=== PATIENT | female | born 1955 | race Caucasian/White ===

== ENCOUNTER 2017-10-28 01:49 | Inpatient (IN) | payer SELFPAY ==
[~2017-10-28] VITALS: Ht 157.5 cm; Wt 96.7 kg
[2017-10-28] VITALS (8 sets, daily range): BP systolic 113–151; BP diastolic 52–77; PULSE 85–95; RESP 16–18; TEMP 97.7–98.5; O2SAT 94–98
--- NOTE | 2017-10-28 02:08 | PD ---
HPI Chief Complaint: Fall Time Seen by Provider: 01:52 Travel History International Travel<30 days: No Contact w/Intl Traveler<30days: No Traveled to known affect area: No History of Present Illness HPI The patient is a 62-year-old female who presents to the emergency department for right leg and knee pain after falling. The patient states she fell in her kitchen earlier tonight landing on her right knee. She heard a " pop "in the right knee. The pain is located over the inferior aspect of the knee and radiates up to the right hip. She is unable to straighten the leg or bear weight on the affected leg secondary to pain. The patient is currently visiting from [place], [place]. She denies striking her head during the fall. She denies any headache, neck pain, chest pain, shortness of breath, abdominal pain, nausea, or vomiting. Symptoms are moderate. There are no current alleviating or exacerbating factors. She denies any associated numbness or tingling of the right lower extremity. PFSH Past Medical History Narrative Medical Depression, essential tremors Asthma: Yes Diminished Hearing: No Past Surgical History Narrative Surgical section Social History Alcohol Use: Yes (occasional) Tobacco Use: Yes Substance Use: No Allergies-Medications (Allergen,Severity, Reaction): Coded Allergies: codeine (Verified Allergy, Severe, 10/28/17) Uncoded Allergies: pcn (Allergy, Severe, 10/28/17) Reported Meds & Prescriptions Reported Meds & Active Scripts Active Reported Primidone 50 Mg Tab Unknown Dose PO BID Lexapro (Escitalopram Oxalate) 5 Mg Tab Unknown Dose PO DAILY Review of Systems Except as stated in HPI: all other systems reviewed are Neg HENT: No: Headaches, Neck Pain Cardiovascular: No: Chest Pain or Discomfort Respiratory: No: Shortness of Breath Gastrointestinal: No: Nausea, Vomiting, Abdominal Pain Genitourinary: No: Dysuria Musculoskeletal: Positive: Limited ROM, Pain Neurologic: No: Paresthesia, Sensory Disturbance Physical Exam Narrative GENERAL: Awake, alert, pleasant 62-year-old female who appears her stated age and is in no acute respiratory distress. SKIN: Focused skin assessment warm/dry. HEAD: Atraumatic. Normocephalic. EYES: Pupils equal and round. No scleral icterus. No injection or drainage. ENT: No nasal bleeding or discharge. Mucous membranes pink and moist. NECK: Trachea midline. No JVD. CARDIOVASCULAR: Regular rate and rhythm. No murmur appreciated. RESPIRATORY: No accessory muscle use. Clear to auscultation. Breath sounds equal bilaterally. GASTROINTESTINAL: Abdomen soft, non-tender, nondistended. No rebound tenderness. MUSCULOSKELETAL: The right lower extremity is slightly shorter than the left lower extremity. Patient is tender palpation of the right lateral aspect of the hip and proximal femur as well as inferior aspect of the knee. The patella appears midline. Positive right dorsalis pedal pulse. She is able to wiggle all 5 toes of the right foot. She is unable to flex the right hip and knee secondary to pain. NEUROLOGICAL: Awake and alert. No obvious cranial nerve deficits. Motor grossly within normal limits. Normal speech. Sensation is intact to the medial , radial, and lateral aspect of the right lower extremity. PSYCHIATRIC: Appropriate mood and affect; insight and judgment normal. Data Data Last Documented VS Vital Signs Date Time Temp Pulse Resp B/P (MAP) Pulse Ox O2 Delivery O2 Flow Rate FiO2 10/28/17 02:07 98 Room Air 10/28/17 01:55 98.5 85 16 130/72 (91) Orders Orders Femur (Ap & Lat/2vws) (10/28/17 02:02) Pelvis, Ap Only (Routine) (10/28/17 02:02) Iv Access Insert/Monitor (10/28/17 02:02) Oximetry (10/28/17 02:02) Ecg Monitoring (10/28/17 02:02) Morphine Inj (Morphine Inj) (10/28/17 02:15) Sodium Chloride 0.9% Flush (Ns Flush) (10/28/17 02:15) Knee, Ltd (1 Or 2vws) (10/28/17 ) Ondansetron Odt (Zofran Odt) (10/28/17 02:15) Electrocardiogram (10/28/17 02:48) Complete Blood Count With Diff (10/28/17 02:48) Comprehensive Metabolic Panel (10/28/17 02:48) Prothrombin Time / Inr (Pt) (10/28/17 02:48) Act Partial Throm Time (Ptt) (10/28/17 02:48) Type And Screen (10/28/17 02:48) Chest, Single Ap (10/28/17 02:48) Ice/Cold Pack (10/28/17 02:48) Sodium Chloride 0.9% Flush (Ns Flush) (10/28/17 03:00) Ct Knee W/O Contrast (10/28/17 ) Morphine Inj (Morphine Inj) (10/28/17 03:00) Canvas Knee Splint (Cks) (10/28/17 ) Admit Order (Ed Use Only) (10/28/17 04:48) Labs Laboratory Tests Test 10/28/17 03:00 White Blood Count 8.8 TH/MM3 Red Blood Count 3.94 MIL/MM3 Hemoglobin 13.4 GM/DL Hematocrit 38.6 % Mean Corpuscular Volume 97.9 FL Mean Corpuscular Hemoglobin 34.1 PG Mean Corpuscular Hemoglobin Concent 34.8 % Red Cell Distribution Width 12.6 % Platelet Count 172 TH/MM3 Mean Platelet Volume 10.4 FL Neutrophils (%) (Auto) 58.1 % Lymphocytes (%) (Auto) 29.1 % Monocytes (%) (Auto) 11.4 % Eosinophils (%) (Auto) 0.9 % Basophils (%) (Auto) 0.5 % Neutrophils # (Auto) 5.1 TH/MM3 Lymphocytes # (Auto) 2.6 TH/MM3 Monocytes # (Auto) 1.0 TH/MM3 Eosinophils # (Auto) 0.1 TH/MM3 Basophils # (Auto) 0.0 TH/MM3 CBC Comment DIFF FINAL Differential Comment Prothrombin Time 11.0 SEC Prothromb Time International Ratio 1.1 RATIO Activated Partial Thromboplast Time 27.0 SEC Blood Urea Nitrogen 5 MG/DL Creatinine 0.46 MG/DL Random Glucose 104 MG/DL Total Protein 7.2 GM/DL Albumin 3.2 GM/DL Calcium Level 8.7 MG/DL Alkaline Phosphatase 95 U/L Aspartate Amino Transf (AST/SGOT) 35 U/L Alanine Aminotransferase (ALT/SGPT) 38 U/L Total Bilirubin 0.5 MG/DL Sodium Level 135 MEQ/L Potassium Level 3.7 MEQ/L Chloride Level 100 MEQ/L Carbon Dioxide Level 20.8 MEQ/L Anion Gap 14 MEQ/L Estimat Glomerular Filtration Rate 138 ML/MIN MDM Medical Decision Making Medical Screen Exam Complete: Yes Emergency Medical Condition: Yes Medical Record Reviewed: Yes Interpretation(s) EKG reveals normal sinus rhythm with a rate 84. No ischemic changes or ectopy noted. Last Impressions Chest X-Ray 10/28/17 0248 Signed Impressions: CONCLUSION: No acute intrathoracic disease. Pelvis X-Ray 10/28/17 020 Signed Impressions: CONCLUSION: No acute fracture or joint dislocation. Femur X-Ray 10/28/17 020 Signed Impressions: CONCLUSION: 1. No acute fracture of the femur. 2. There is a fracture involving the lateral tibial plateau. Lower Extremity CT 10/28/17 0000 Signed Impressions: CONCLUSION: 1. Intra-articular comminuted depressed fracture involving the lateral tibial plateau. 2. Joint effusion. Knee X-Ray 10/28/17 0000 Signed Impressions: CONCLUSION: Intra-articular fracture involving the lateral tibial plateau. Laboratory Tests Test 10/28/17 03:00 White Blood Count 8.8 TH/MM3 Red Blood Count 3.94 MIL/MM3 Hemoglobin 13.4 GM/DL Hematocrit 38.6 % Mean Corpuscular Volume 97.9 FL Mean Corpuscular Hemoglobin 34.1 PG Mean Corpuscular Hemoglobin Concent 34.8 % Red Cell Distribution Width 12.6 % Platelet Count 172 TH/MM3 Mean Platelet Volume 10.4 FL Neutrophils (%) (Auto) 58.1 % Lymphocytes (%) (Auto) 29.1 % Monocytes (%) (Auto) 11.4 % Eosinophils (%) (Auto) 0.9 % Basophils (%) (Auto) 0.5 % Neutrophils # (Auto) 5.1 TH/MM3 Lymphocytes # (Auto) 2.6 TH/MM3 Monocytes # (Auto) 1.0 TH/MM3 Eosinophils # (Auto) 0.1 TH/MM3 Basophils # (Auto) 0.0 TH/MM3 CBC Comment DIFF FINAL Differential Comment Prothrombin Time 11.0 SEC Prothromb Time International Ratio 1.1 RATIO Activated Partial Thromboplast Time 27.0 SEC Blood Urea Nitrogen 5 MG/DL Creatinine 0.46 MG/DL Random Glucose 104 MG/DL Total Protein 7.2 GM/DL Albumin 3.2 GM/DL Calcium Level 8.7 MG/DL Alkaline Phosphatase 95 U/L Aspartate Amino Transf (AST/SGOT) 35 U/L Alanine Aminotransferase (ALT/SGPT) 38 U/L Total Bilirubin 0.5 MG/DL Sodium Level 135 MEQ/L Potassium Level 3.7 MEQ/L Chloride Level 100 MEQ/L Carbon Dioxide Level 20.8 MEQ/L Anion Gap 14 MEQ/L Estimat Glomerular Filtration Rate 138 ML/MIN Differential Diagnosis Differential diagnosis includes hip fracture, hip dislocation, femur fracture, tibial plateau fracture, knee dislocation, mechanical fall. Narrative Course IV was established and the patient was placed on cardiac telemetry monitoring and continuous pulse oximetry monitoring. The patient was administered morphine 4 mg intravenously and Zofran 4 mg ODT. X-ray of the pelvis, right femur, and right knee were obtained. X-rays reveal the patient has a tibial plateau fracture that appears to extend into the joint. Therefore, the patient was kept n.p.o. A knee immobilizer was placed and a CT of the knee without contrast was obtained. Labs were sent and an EKG was ordered and interpreted. The patient will be admitted to the medical service with consultation orthopedics for evaluation of the right tibial plateau fracture. I discussed the findings with the patient and family at bedside. Physician Communication Physician Communication The on-call medical service was paged for admission. I discussed the patient with Dr. Zavala who agrees with admission. Diagnosis Primary Impression: Right medial tibial plateau fracture Qualified Codes: S82.131A - Displaced fracture of medial condyle of right tibia, initial encounter for closed fracture Condition: Stable You De Jesus MD Oct 28, 2017 02:08
[2017-10-28] MEDS ORDERED: MORPHINE SULFATE 4 MG/ML INJ IV PUSH ONE ×3 (02:15→08:15)
[2017-10-28] MEDS ORDERED: ONDANSETRON ODT 4 MG TAB PO ONE (02:15)
[2017-10-28] MEDS ORDERED: SODIUM CHLORIDE 0.9% FLUSH 10 ML FLUSH IVF PRN ×2 (02:15→03:00)
--- NOTE | 2017-10-28 02:41 | RADRPT ---
EXAM DATE: 10/28/2017 2:33 AM EDT AGE/SEX: 62 years / Female INDICATIONS: Pain in right leg from fall. CLINICAL DATA: This is the patient's initial encounter. Patient reports that signs and symptoms have been present for 1 day and indicates a pain score of 10/10. MEDICAL/SURGICAL HISTORY: None. None. COMPARISON: No prior [facility] exams available for comparison. FINDINGS: Examination of the pelvis demonstrates no evidence of fracture or dislocation. Bony mineralization i s normal. There is no widening of the sacroiliac joints. No foreign body is identified. There is go od alignment of the SI joints and pubic symphysis. CONCLUSION: No acute fracture or joint dislocation. Electronically signed by: Luciano Brewer MD 10/28/2017 2:39 AM EDT
--- NOTE | 2017-10-28 02:42 | RADRPT ---
EXAM DATE: 10/28/2017 2:31 AM EDT AGE/SEX: 62 years / Female INDICATIONS: Fall in kitchen pain in right knee. CLINICAL DATA: This is the patient's initial encounter. Patient reports that signs and symptoms have been present for 1 day and indicates a pain score of 10/10. MEDICAL/SURGICAL HISTORY: None. None. COMPARISON: No prior [facility] exams available for comparison. FINDINGS: There is an intra-articular fracture involving the lateral tibial plateau. There is some mild depress ion of the fracture. There is a joint effusion. No joint dislocation. The patella is grossly intact. The distal femur is grossly intact. CONCLUSION: Intra-articular fracture involving the lateral tibial plateau. Electronically signed by: Luciano Brewer MD 10/28/2017 2:41 AM EDT
--- NOTE | 2017-10-28 02:42 | RADRPT ---
EXAM DATE: 10/28/2017 2:32 AM EDT AGE/SEX: 62 years / Female INDICATIONS: Fall on right side in kitchen pain in right leg. CLINICAL DATA: This is the patient's initial encounter. Patient reports that signs and symptoms have been present for 1 day and indicates a pain score of 10/10. MEDICAL/SURGICAL HISTORY: None. None. COMPARISON: [facility], KNEE RIGHT LTD (1 OR 2 VWS), 10/28/2017. . FINDINGS: Bony structures are intact and in normal alignment. Osseous density is normal. Soft tissues are unre markable. No radiopaque foreign bodies seen. There does appear to be a fracture involving the late ral tibial plateau. CONCLUSION: 1. No acute fracture of the femur. 2. There is a fracture involving the lateral tibial plateau. Electronically signed by: Luciano Brewer MD 10/28/2017 2:40 AM EDT
--- NOTE | 2017-10-28 03:06 | RADRPT ---
EXAM DATE: 10/28/2017 3:01 AM EDT AGE/SEX: 62 years / Female INDICATIONS: Evaluate for pneumonia, pneumothorax, and or communicable disease. CLINICAL DATA: This is the patient's initial encounter. Patient reports that signs and symptoms have been present for 1 day and indicates a pain score of 2/10. MEDICAL/SURGICAL HISTORY: None. None. COMPARISON: No prior [facility] exams available for comparison. FINDINGS: A single AP view of the chest demonstrates the lungs to be symmetrically aerated without evidence of mass, infiltrate or effusion. The cardiomediastinal contours are unremarkable. Osseous structures a re intact. CONCLUSION: No acute intrathoracic disease. Electronically signed by: Luciano Brewer MD 10/28/2017 3:04 AM EDT
[2017-10-28] MEDS ORDERED: LEXA5TAB PO (03:33)
[2017-10-28] MEDS ORDERED: PRIM50TA5 PO (03:33)
--- NOTE | 2017-10-28 03:40 | RADRPT ---
EXAM DATE: 10/28/2017 3:34 AM EDT AGE/SEX: 62 years / Female INDICATIONS: Right knee pain. CLINICAL DATA: This is the patient's initial encounter. Patient reports that signs and symptoms have been present for 1 day and indicates a pain score of 8/10. MEDICAL/SURGICAL HISTORY: None. None. RADIATION DOSE: 16.58 CTDI (mGy) COMPARISON: No prior [facility] exams available for comparison. TECHNIQUE: Multiple contiguous axial images were acquired using a multirow detector CT scanner witho ut contrast. Multiplanar reconstruction was performed in the sagittal and coronal planes. Using aut omated exposure control and adjustment of the mA and/or kV according to patient size, radiation dose was kept as low as reasonably achievable to obtain optimal diagnostic quality images. FINDINGS: Bones: There is a intra-articular comminuted depressed fracture through the lateral tibial plateau. The medial tibial plateau is grossly intact. The proximal fibula and distal femur are grossly intact. Patella is grossly intact. Joints: No joint dislocation. There is evidence of a joint effusion. Soft Tissues: There is some soft tissue swelling.. Other: No foreign bodies seen. CONCLUSION: 1. Intra-articular comminuted depressed fracture involving the lateral tibial plateau. 2. Joint effusion. Electronically signed by: Luciano Brewer MD 10/28/2017 3:39 AM EDT
[2017-10-28 03:45] LABS: AUTOMATED NEUTROPHIL # 5.1 TH/MM3 (1.8-7.7); BASOPHIL % 0.5 % (0.0-2.0); EOSINOPHIL # 0.1 TH/MM3 (0-0.4); EOSINOPHIL % 0.9 % (0.0-4.0); HEMATOCRIT 38.6 % (35.0-46.0); HEMOGLOBIN 13.4 GM/DL (11.6-15.3); LYMPH % 29.1 % (9.0-44.0); LYMPHOCYTE # 2.6 TH/MM3 (1.0-4.8); MEAN CELL VOLUME 97.9 FL (80.0-100.0); MEAN CORPUSCULAR HEMOGLOBIN 34.1 PG (27.0-34.0); MEAN CORPUSCULAR HGB CONC 34.8 % (32.0-36.0); MEAN PLATELET VOLUME 10.4 FL (7.0-11.0); MONO % 11.4 % (0.0-8.0); NEUT % 58.1 % (16.0-70.0); PLATELET COUNT 172 TH/MM3 (150-450); RED BLOOD COUNT 3.94 MIL/MM3 (4.00-5.30); RED CELL DISTRIBUTION WIDTH 12.6 % (11.6-17.2); WHITE BLOOD COUNT 8.8 TH/MM3 (4.0-11.0)
[2017-10-28 03:49] LABS: ALBUMIN 3.2 GM/DL (3.4-5.0); ALT (GPT) 38 U/L (10-53); AST (GOT) 35 U/L (15-37); BICARBONATE 20.8 MEQ/L (21.0-32.0); BLOOD UREA NITROGEN 5 MG/DL (7-18); CALCIUM 8.7 MG/DL (8.5-10.1); CHLORIDE 100 MEQ/L (98-107); CREATININE 0.46 MG/DL (0.50-1.00); GLOMERULAR FILTRATION RATE 138 ML/MIN (>89); GLUCOSE,RANDOM 104 MG/DL (74-106); SODIUM (NA) 135 MEQ/L (136-145)
[2017-10-28 03:52] LABS: ALKALINE PHOSPHATASE 95 U/L (45-117); TOTAL BILIRUBIN ADULT 0.5 MG/DL (0.2-1.0); TOTAL PROTEIN 7.2 GM/DL (6.4-8.2)
[2017-10-28 03:56] LABS: INTERNATIONAL NORMALIZED RATIO 1.1 RATIO
[2017-10-28] MEDS ORDERED: SENNOSIDES 8.6 MG TAB PO PRN (05:00)
[2017-10-28] MEDS ORDERED: ACETAMINOPHEN 325 MG TAB PO PRN (05:00)
[2017-10-28] MEDS ORDERED: ONDANSETRON ODT 4 MG TAB PO PRN (05:00)
[2017-10-28] MEDS ORDERED: BISACODYL 10 MG SUPP RECTAL PRN (05:00)
[2017-10-28] MEDS ORDERED: MAGNESIUM HYDROXIDE SUSP 30 ML CUP PO PRN (05:00)
[2017-10-28] MEDS ORDERED: LACTULOSE SYRUP 20 GM/30 ML CUP PO PRN (05:00)
[2017-10-28] MEDS ORDERED: NALOXONE HCL 0.4 MG/ML AMP IV PUSH PRN (05:00)
[2017-10-28] MEDS: SODIUM CHLOR 0.9% 1000 ML INJ 1,000 ML IV SCH ×3 (05:03→22:05)
[2017-10-28] MEDS: MORPHINE SULFATE 4 MG/ML INJ IV PUSH PRN ×4 (05:04→22:03)
[2017-10-28] MEDS ORDERED: WHEEMIS3 (06:46)
[2017-10-28] MEDS ORDERED: HYDR-3583 PO (06:46)
[2017-10-28] MEDS ORDERED: XARE10TA PO (06:46)
[2017-10-28] MEDS ORDERED: WALKER/ADULT/FO1 MIS (06:46)
[2017-10-28] MEDS ORDERED: ceFAZolin INJ 1,000 MG VIAL ONE (06:57)
[2017-10-28] MEDS ORDERED: GENTAMICIN SULFATE 80 MG/2 ML VIAL ONE (06:57)
[2017-10-28] MEDS ORDERED: SODIUM CHLOR 0.9% 250 ML INJ 250 ML ONE (06:57)
[2017-10-28] MEDS ORDERED: VANCOMYCIN HCL 1000 MG VIAL ONE (06:57)
[2017-10-28] MEDS: SODIUM CHLORIDE 0.9% FLUSH 10 ML FLUSH IV FLUSH PRN ×2 (07:40→07:41)
[2017-10-28] MEDS ORDERED: SODIUM CHLORID 0.9% 500 ML IV PRN (07:45)
[2017-10-28] MEDS ORDERED: CHLORHEXIDINE GLUCONATE 2 % 1 PACK (2 CLOTHS) TOPICAL PRN (07:45)
[2017-10-28] MEDS ORDERED: LACTATED RINGER'S 1000 ML IV PRN (07:45)
[2017-10-28] MEDS ORDERED: POVIDONE IODINE 5% (ANTISEPSIS KIT) 4 APPLICATIONS EACH NARE PRN (07:45)
[2017-10-28] MEDS ORDERED: METOPROLOL TARTRATE 25 MG TAB PO PRN (07:45)
[2017-10-28] MEDS: SODIUM CHLORIDE 0.9% FLUSH 10 ML FLUSH IV FLUSH SCH ×2 (07:55→21:00)
[2017-10-28] MEDS ORDERED: RESP: ALBUTEROL 2.5 MG/3 ML NEB (SCH) ONE (08:01)
[2017-10-28] MEDS ORDERED: ACETAMINOPHEN 1000 MG/100 ML 100 ML IV ONE (08:36)
[2017-10-28] MEDS: DOCUSATE SODIUM 50 MG/SENNA 8.6 MG TAB PO SCH ×2 (09:00→22:03)
[2017-10-28] MEDS: VANCOMYCIN INJ 1,000 MG in SODIUM CHLOR 0.9% 250 ML INJ 250 ML IV SCH ×2 (09:00→22:04)
[2017-10-28] MEDS: LACTATED RINGER'S 1000 ML INJ 1,000 ML IV SCH (10:19)
--- NOTE | 2017-10-28 10:24 | PD.OP ---
cc: Elmer Delgadillo MD Operative Report Date of Surgery: Oct 28, 2017 Preoperative Diagnosis: Comminuted depressed lateral right tibial plateau fracture Postoperative Diagnosis: Same, lateral meniscus tear Procedure: Open repair of right lateral meniscus tear, open reduction to fixation right lateral tibial plateau fracture Anesthesia: General Surgeon: Elmer Delgadillo Excellence Specialist(s): Viral Fonseca PA-C The surgical procedure was assisted by my physician assistant portfolio manager. My P.A. presence was necessary throughout this case for the manipulation and positioning of the surgical extremity. My P.A. was assisting me throughout the duration of this procedure. The skill set of a physician assistant portfolio manager was medically necessary to complete this procedure. During the surgical case the veterinary surgery technician was working at the back table and the physician assistant portfolio manager was directly assisting me. Operation and Findings: Implants used: Synthes Plan of activity: Nonweightbearing, no quad sets This patient was seen and evaluated preoperatively. Patient sustained an injury resulting a right tibial plateau fracture. Informed consent was obtained preoperatively after detailed discussion of the risks and benefits of surgery. Risk of surgery including bleeding, infection, nonunion, painful hardware, stiffness, loss of motion, arthritis, need for knee replacement, as well as medical complications including blood clots, stroke, heart attack, and were discussed. I also discussed the possibility of using allograft bone graft . Preoperatively the operative site was marked. Patient was brought to the operating room and placed on the operating room table. Intravenous sedation and general endotracheal anesthesia were administered. IV antibiotics were given and a time out procedure was preformed. The operative leg was prepped with alcohol followed by Hibiclens and draped in the usual sterile fashion. Procedure began with a 4-inch curvilinear incision over the anterolateral knee. Subcutaneous tissue was treated with Bovie. Iliotibial band was split in line with fibers. A sub-meniscal arthrotomy was created and the lateral articular surface was visualized. At this point there was noted to be a bucket-handle type meniscus tear. Attention was turned towards repair of the lateral meniscus. Using a #1 Vicryl suture of the lateral meniscus was repaired. 3 horizontal mattress sutures were placed. A stable repair was obtained. Next attention was turned to reduction of the fracture. There was significant comminution and depression of the articular surface. The articular surface was visualized. The lateral plateau was fractured into 3 main fracture fragments. Each fracture was elevated into excellent alignment. Multiple K wires were used to hold provisional fixation. The cortical fragments were now reduced. Fluoroscopy revealed excellent alignment of fracture. At this 5 cc of Ceramet bone cement was mixed. The cement was now carefully injected underneath the articular surface. A proximal tibial plate was selected. The plate was provisionally held with K-wires. 3.5 cortical screws were used compress plate to bone distally, and a periarticular clamp was used to compress the medial and lateral tibial plateau fracture fragments together. Multiple locking screws were now placed proximally. Additional screws were placed in the shaft. K- wires were removed. Final fluoroscopy showed excellent alignment of fracture with well-placed hardware. The incision was thoroughly irrigated. Arthrotomy and iliotibial band closed with #1 Vicryl,. Subcutaneous tissues closed with 3- 0 Vicryl and skin was closed with anibal. Sterile dressings were applied. The patient was transferred to recovery in stable condition. Elmer Delgadillo MD Oct 28, 2017 10:24
[2017-10-28] MEDS ORDERED: diphenhydrAMINE HCL 25 MG CAP PO PRN (10:30)
[2017-10-28] MEDS ORDERED: NURSING INFORMATION XX PRN (10:30)
--- NOTE | 2017-10-28 10:37 | RADRPT ---
EXAM DATE: 10/28/2017 10:25 AM EDT AGE/SEX: 62 years / Female INDICATIONS: ORIF right tibial plateau fracture. CLINICAL DATA: This is the patient's subsequent encounter. Patient reports that signs and symptoms h ave been present for 1 day and indicates a pain score of Nonresponsive. MEDICAL/SURGICAL HISTORY: Non-responsive. Non-responsive. COMPARISON: No prior [facility] exams available for comparison. FINDINGS: 2 magnified C-arm spot views are centered over the knee joint and labeled right. There is a lateral o rthopedic plate with multiple anchoring screws extending from the tibial plateaus to the metadiaphysi s. Good alignment noted. High density material is seen involving the lateral tibial metaphysis consis tent with methylmethacrylate cement. CONCLUSION: Orthopedic hardware with good alignment. Electronically signed by: Abhishek Fletcher MD 10/28/2017 10:35 AM EDT
[2017-10-28] MEDS ORDERED: DO NOT ADM ANY ANTICOAGULANT DRUGS PRN (10:48)
--- NOTE | 2017-10-28 10:52 | MB ---
cc: Elmer Alvarado MD DATE: 10/28/2017 REASON FOR CONSULTATION: Right lateral tibial plateau fracture. CONSULTING PHYSICIAN: Dr. Khloe Zavala. REASON FOR VISIT: Bridgette is a 62-year-old female. She and her are visiting from [place], [place]. She was walking through the kitchen at her hotel when she slipped and fell. She states that the parts sales manager was leaking. The floor was wet and slippery. She felt immediate right knee pain. She was unable to stand or ambulate. She describes a mechanical fall. She denies dizziness, syncope or loss of consciousness. She presented to the emergency room, where x-rays revealed a comminuted right lateral tibial plateau fracture. She is currently awake and alert in the emergency department. Her only complaint is her right knee. PAST MEDICAL HISTORY: Depression, essential tremors and asthma. PAST SURGICAL HISTORY: . ALLERGIES: CODEINE. MEDICATIONS: Include primidone and Lexapro. SOCIAL HISTORY: The patient denies drug use. She drinks alcohol occasionally. She does smoke. FAMILY HISTORY: Noncontributory. She denies any familial problems with anesthesia. REVIEW OF SYSTEMS: The patient denies headache, visual changes, neck pain, chest pain, shortness of breath, abdominal pain, nausea, vomiting, recent weight loss, fever, chills, numbness or tingling of extremities or bowel or bladder incontinence. She complains of right knee pain. The pain is worse with movement. PHYSICAL EXAMINATION: GENERAL: The patient is a pleasant 62-year-old female. She is awake and alert. She is moderately overweight. She is in no acute distress. VITAL SIGNS: Temperature 98.5, pulse 92, respirations 16, blood pressure 132/72, O2 saturations 98% on 2 liters nasal cannula. HEENT: Head: The patient is normocephalic. Pupils are equal. NECK: Soft, nontender. The trachea is in the midline. ABDOMEN: Soft, nontender, nondistended. EXTREMITIES: Examination of bilateral upper extremities reveals no pain with shoulder, elbow or wrist motion. She has intact sensation in all fingers. She has good capillary refill in all fingers. Skin is intact. Radial pulses are palpable. Examination of left leg reveals no pain with hip, knee or ankle motion. Skin is intact. Dorsalis pedis pulse is palpable. Sensation is intact. Examination of right leg reveals no tenderness around her hip or ankle. She has mild swelling around the knee. Calf and thigh compartments are soft. She has pain with any knee motion. She is tender to palpation about the proximal tibial plateau. She has intact sensation to the right foot. She has minimal pain with passive motion of her toes or ankle. LABORATORY STUDIES: The patient has a white blood cell count of 8.8, hematocrit of 38.6, platelet count of 172. INR 1.1. Potassium of 3.7, creatinine of 0.46. X-RAY STUDIES: X-rays and CT scan of right knee were reviewed. X-rays reveal a comminuted, depressed lateral tibial plateau fracture. IMPRESSION: 1. History of asthma. 2. Possible osteoporosis. 3. Comminuted displaced right lateral tibial plateau fracture. PLAN: Treatment options were discussed with the patient. At this point, I would recommend open reduction and internal fixation of right tibial plateau. Risks of surgery include bleeding, infection; injuries to arteries, nerves or blood vessels; nonunion, malunion, painful hardware, knee arthritis, need for knee replacement, as well as medical complications including blood clot, stroke, heart attack and . I discussed with her the possible use of allograft bone graft and the risk associated with this. All questions were answered. Informed consent was obtained. Postoperatively, I will place the patient on Lovenox for DVT prophylaxis. I will also place her on calcium with vitamin D. Physical therapy will be consulted for gait training. She will need to be nonweightbearing for 3 months. All questions were answered. A mid-level provider in my office, nurse practitioner or PA, may see this patient on a follow-up basis and continue to implement the objective of this plan including: Starting or adjusting medications, injections of muscle, tendon, bursa or joints, cast application, orthotic or brace application, physical therapy, further radiographic studies including x-ray, MRI, CT, ultrasounds or bone scan, vascular studies, neurologic studies, or other specialist consultations, and proceeding with surgical management as appropriate. MD GUERRERO Mixon/ELVA , 10:28 AM , 10:51 AM
[2017-10-28] MEDS ORDERED: *RESP: ALBUTEROL 2.5 MG/3 ML NEB (PRN) PERIprocedural Use ONLY NEB ONE (10:54)
[2017-10-28] MEDS ORDERED: DIMETHICONE/OXYBENZONE/PADMIATE LIP BALM 4.25 GM TOPICAL ONE ×2 (10:55→12:00)
[2017-10-28] MEDS ORDERED: Post-op Orders (for Pharmacy) XX ONE (11:00)
[2017-10-28] MEDS ORDERED: *morphine SULFATE 4 MG/ML PERIprocedure ONLY ONE ×2 (11:03→11:29)
[2017-10-28] MEDS ORDERED: *MEPERIDINE 25 MG INJ VIAL PERIprocedural Use ONLY ONE (11:25)
[2017-10-28] MEDS: CALCIUM/VITAMIN D 250 MG/125 U TAB PO SCH ×2 (14:19→17:27)
[2017-10-28] MEDS ORDERED: LORazepam 2 MG/ML VIAL IV PUSH PRN ×2 (16:45)
[2017-10-28] MEDS ORDERED: LORazepam 2 MG TAB PO PRN (16:45)
[2017-10-28] MEDS ORDERED: LORazepam 1 MG TAB PO PRN (16:45)
[2017-10-28] MEDS ORDERED: FLUMAZENIL 0.5 MG/5 ML VIAL IV PUSH PRN (16:45)
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
[2017-10-28] MEDS: ESCITALOPRAM OXALATE 10 MG TAB PO SCH (17:26)
[2017-10-28] MEDS: ceFAZolin 2 GM PREMIX 50 ML IV SCH ×2 (17:27→23:41)
--- NOTE | 2017-10-28 18:37 | EKG ---
Date Performed: 10/28/2017 Time Performed: 02:15:51 PTAGE: 62 years EKG: Sinus rhythm NORMAL ECG NO PREVIOUS TRACING DOCTOR: Gracie Dominguez Interpretating Date/Time 10/28/2017 18:35:36
[2017-10-29] VITALS (7 sets, daily range): BP systolic 130–147; BP diastolic 63–76; PULSE 92–108; RESP 15–18; TEMP 98.1–98.9; O2SAT 93–98
[2017-10-29] MEDS: RESP: ALBUTEROL 2.5 MG/IPRATROPIUM 0.5 MG NEB (PRN) NEB (00:49)
[2017-10-29] MEDS: MORPHINE SULFATE 4 MG/ML INJ IV PUSH PRN ×7 (01:50→21:35)
[2017-10-29 05:57] LABS: AUTOMATED NEUTROPHIL # 7.4 TH/MM3 (1.8-7.7); BASOPHIL % 0.4 % (0.0-2.0); EOSINOPHIL % 0.3 % (0.0-4.0); HEMOGLOBIN 11.9 GM/DL (11.6-15.3); LYMPH % 17.2 % (9.0-44.0); LYMPHOCYTE # 1.8 TH/MM3 (1.0-4.8); MEAN CELL VOLUME 98.7 FL (80.0-100.0); MEAN CORPUSCULAR HEMOGLOBIN 33.6 PG (27.0-34.0); MONO % 12.7 % (0.0-8.0); MONOCYTE # 1.4 TH/MM3 (0-0.9); NEUT % 69.4 % (16.0-70.0); PLATELET COUNT 166 TH/MM3 (150-450); RED BLOOD COUNT 3.55 MIL/MM3 (4.00-5.30); RED CELL DISTRIBUTION WIDTH 12.9 % (11.6-17.2); WHITE BLOOD COUNT 10.7 TH/MM3 (4.0-11.0)
[2017-10-29 06:21] LABS: BICARBONATE 28.1 MEQ/L (21.0-32.0); CALCIUM 8.7 MG/DL (8.5-10.1); CREATININE 0.43 MG/DL (0.50-1.00)
--- NOTE | 2017-10-29 06:36 | PD.ORT.PN ---
Subjective Subjective Remarks POD 1 s/p ORIF right tibial plateau fx doing well. reports pain but resting comfortably Objective Vitals Vital Signs Date Time Temp Pulse Resp B/P (MAP) Pulse Ox O2 Delivery O2 Flow Rate FiO2 10/29/17 03:11 98.2 103 18 138/69 (92) 95 10/29/17 00:53 93 Nasal Cannula 3.00 10/28/17 23:09 98.1 91 18 151/77 (101) 96 10/28/17 19:55 98.3 88 18 141/65 (90) 98 10/28/17 16:47 94 Nasal Cannula 3.00 10/28/17 16:00 98.1 90 16 113/52 (72) 94 10/28/17 11:30 99 16 121/68 (85) 94 Nasal Cannula 3 10/28/17 11:29 97.7 95 16 125/66 (85) 94 10/28/17 11:15 101 16 114/63 (80) 92 Nasal Cannula 3 10/28/17 11:00 97 16 155/82 (106) 94 Nasal Cannula 3 10/28/17 10:52 98.1 104 16 136/82 (100) 97 Nasal Cannula 3 I/O 10/28/17 10/28/17 10/28/17 10/29/17 10/29/17 10/29/17 07:00 15:00 23:00 07:00 15:00 23:00 Intake Total 740 ml 2394 ml Output Total 150 ml Balance 590 ml 2394 ml Intake Oral 240 ml 480 ml IV Total 1914 ml Other 500 ml Output Estimated Blood Loss 150 ml # Voids 1 2 # Bowel Movements 0 Result Diagram: 10/29/17 0455 10/29/17 0455 Objective Remarks RLE: dressings clean and dry. intact. NVI. +CKS Assessment & Plan Assessment and Plan 1) right Tibial plateau fx s/p ORIF - POD 1 -NWB -CKS at all times except for PT -PROM 0-90deg -no quad sets or leg lifts -DC planning -plan for DC home tomorrow or thursday -will follow up in 2 weeks at home in [place], [place] -DVT prophylaxis Viral Fonseca/Associate [employer] Director PA Oct 29, 2017 06:36
[2017-10-29] MEDS: CALCIUM CARBONATE 500 MG CHEWABLE TAB PO PRN (06:53)
[2017-10-29] MEDS: ACETAMINOPHEN/HYDROcodone 325 MG/10 MG TAB PO PRN ×2 (06:59→23:23)
[2017-10-29] MEDS ORDERED: ERGOCALCIFEROL (VIT D2) 50,000 UNIT CAP PO SCH (09:00)
[2017-10-29] MEDS: SODIUM CHLORIDE 0.9% FLUSH 10 ML FLUSH IV FLUSH SCH ×2 (09:00→21:34)
[2017-10-29] MEDS: FOLIC ACID 1 MG TAB PO SCH (09:26)
[2017-10-29] MEDS: THIAMINE HCL 100 MG TAB PO SCH (09:26)
[2017-10-29] MEDS: PRIMIDONE 50 MG TAB PO SCH (09:26)
[2017-10-29] MEDS: MULTIVITAMINS/MINERALS THERAPEUTIC TAB PO SCH (09:26)
[2017-10-29] MEDS: ESCITALOPRAM OXALATE 10 MG TAB PO SCH (09:26)
[2017-10-29] MEDS: CALCIUM/VITAMIN D 250 MG/125 U TAB PO SCH ×3 (09:26→18:27)
[2017-10-29] MEDS: CHOLECALCIFEROL (VIT D3) 1000 UNIT TAB PO SCH (09:26)
[2017-10-29] MEDS: DOCUSATE SODIUM 50 MG/SENNA 8.6 MG TAB PO SCH ×2 (09:27→21:34)
[2017-10-29] MEDS: ceFAZolin 2 GM PREMIX 50 ML IV SCH ×3 (09:27→23:23)
[2017-10-29] MEDS: ENOXAPARIN SODIUM 40 MG/0.4 ML SYRINGE SQ SCH (09:27)
[2017-10-29] MEDS: SODIUM CHLOR 0.9% 1000 ML INJ 1,000 ML IV SCH ×2 (11:00→21:00)
[2017-10-29] MEDS: LACTATED RINGER'S 1000 ML INJ 1,000 ML IV SCH ×2 (11:19→23:49)
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
[2017-10-29] MEDS: hydrOXYzine HCL 25 MG TAB PO SCH (18:27)
[2017-10-30] MEDS: hydrOXYzine HCL 25 MG TAB PO SCH ×3 (00:56→17:55)
[2017-10-30] MEDS: MORPHINE SULFATE 4 MG/ML INJ IV PUSH PRN ×2 (00:56→06:50)
--- NOTE | 2017-10-30 06:43 | PD.ORT.PN ---
Subjective Subjective Remarks POD 2 s/p ORIF right tibial plateau fx doing well. reports pain but resting comfortably Objective Vitals Vital Signs Date Time Temp Pulse Resp B/P (MAP) Pulse Ox O2 Delivery O2 Flow Rate FiO2 10/29/17 23:43 98.8 108 18 131/63 (85) 97 10/29/17 20:57 Nasal Cannula 2.00 10/29/17 20:12 98.7 104 18 147/76 (99) 98 10/29/17 16:59 98.8 104 15 130/72 (91) 93 10/29/17 13:13 10/29/17 12:25 98.1 92 18 130/63 (85) 95 10/29/17 09:12 98.9 104 18 130/67 (88) 94 10/29/17 07:49 Nasal Cannula 3.00 I/O 10/29/17 10/29/17 10/29/17 10/30/17 10/30/17 10/30/17 07:00 15:00 23:00 07:00 15:00 23:00 Intake Total 2394 ml 0 ml 2300 ml 630 ml Balance 2394 ml 0 ml 2300 ml 630 ml Intake Oral 480 ml 1200 ml 480 ml IV Total 1914 ml 0 ml 1100 ml 150 ml # Voids 2 3 3 # Bowel Movements 0 0 Result Diagram: 10/29/17 0455 10/29/17 0455 Objective Remarks RLE: dressings clean and dry. intact. NVI. +CKS Assessment & Plan Assessment and Plan 1) right Tibial plateau fx s/p ORIF - POD 2 -NWB -CKS at all times except for PT -PROM 0-90deg -no quad sets or leg lifts -DC planning -plan for DC home today when stable -ortho clear for DC -will follow up in 2 weeks at home in [place], [place] -DVT prophylaxis Viral Fonseca/First Kd CASTELLON Oct 30, 2017 06:43
[2017-10-30] MEDS: SODIUM CHLOR 0.9% 1000 ML INJ 1,000 ML IV SCH ×2 (07:00→17:00)
[2017-10-30 08:00] VITALS: BP 134/63; PULSE 94; RESP 18; TEMP 98.3; O2SAT 96
[2017-10-30] MEDS: CALCIUM/VITAMIN D 250 MG/125 U TAB PO SCH ×3 (09:43→17:55)
[2017-10-30] MEDS: MULTIVITAMINS/MINERALS THERAPEUTIC TAB PO SCH (09:43)
[2017-10-30] MEDS: THIAMINE HCL 100 MG TAB PO SCH (09:43)
[2017-10-30] MEDS: ENOXAPARIN SODIUM 40 MG/0.4 ML SYRINGE SQ SCH (09:43)
[2017-10-30] MEDS: ESCITALOPRAM OXALATE 20 MG TAB PO SCH (09:43)
[2017-10-30] MEDS: DOCUSATE SODIUM 50 MG/SENNA 8.6 MG TAB PO SCH ×2 (09:43→20:30)
[2017-10-30] MEDS: CHOLECALCIFEROL (VIT D3) 1000 UNIT TAB PO SCH (09:44)
[2017-10-30] MEDS: PRIMIDONE 50 MG TAB PO SCH (09:44)
[2017-10-30] MEDS: ceFAZolin 2 GM PREMIX 50 ML IV SCH (09:45)
[2017-10-30] MEDS: SODIUM CHLORIDE 0.9% FLUSH 10 ML FLUSH IV FLUSH SCH ×2 (09:45→20:31)
[2017-10-30] MEDS: FOLIC ACID 1 MG TAB PO SCH (09:48)
[2017-10-30] MEDS: ACETAMINOPHEN/HYDROcodone 325 MG/10 MG TAB PO PRN ×4 (09:49→20:31)
[2017-10-30] MEDS ORDERED: DOCU100C15 PO (10:23)
[2017-10-30] MEDS: CALCIUM CARBONATE 500 MG CHEWABLE TAB PO PRN ×2 (10:26→20:36)
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
[2017-10-30] MEDS: LACTATED RINGER'S 1000 ML INJ 1,000 ML IV SCH ×2 (12:19→20:32)
--- NOTE | 2017-10-30 12:25 | HHI.PYPN ---
Subjective Remarks Patient was seen today for psychiatric reevaluation, the patient was found calm , cooperative and pleasant. The patient reports feeling much better, she says that she is waiting for her son to come from [place] to pick her up, but at the same time she feels that her son "who is a little bit responsible" might not come and she will be stuck here in [facility]. Patient denies suicidal enemas ideation, she denies visual and auditory hallucinations. Oriented 3. Mental Status Examination Appearance: Appropriate Consciousness: Alert Orientation: x4 Motor Activity: Normal gait Speech: Unremarkable Language: Adequate Fund of Knowledge: Adequate Attention and Concentration: Adequate Memory: Unremarkable Mood: Appropriate Affect: Appropriate Thought Process & Associations: Intact Thought Content: Appropriate Hallucination Type: None Delusion Type: None Suicidal Ideation: No Suicidal Plan: No Suicidal Intention: No Homicidal Ideation: No Homicidal Plan: No Homicidal Intention: No Insight: Fair Judgment: Impulsive Results Vitals/IOs Vital Signs Date Time Temp Pulse Resp B/P (MAP) Pulse Ox O2 Delivery O2 Flow Rate FiO2 10/30/17 10:49 18 10/30/17 08:00 98.3 94 134/63 (86) 96 10/29/17 20:57 Nasal Cannula 2.00 Intake and Output 10/30/17 10/30/17 10/31/17 08:00 16:00 00:00 Intake Total 630 ml 50 ml Balance 630 ml 50 ml Assessment & Plan Problem List: (1) Adjustment disorder with mixed anxiety and depressed mood ICD Codes: F43.23 - Adjustment disorder with mixed anxiety and depressed mood Assessment & Plan: Continue current psychotropic regimen. No admission indicated. Assessment & Plan Estimated LOS: days Justification for Cont. Inpt. No admission indicated Sergei Rivera MD Oct 30, 2017 12:25
[2017-10-30 13:00] VITALS: BP 144/65; PULSE 95; RESP 18; TEMP 98.1; O2SAT 96
[2017-10-30 14:18] VITALS: O2SAT 96
[2017-10-30 16:00] VITALS: BP 122/56; PULSE 91; RESP 18; TEMP 97.9; O2SAT 97
[2017-10-30 20:00] VITALS: BP 125/66; PULSE 90; RESP 18; TEMP 99.2; O2SAT 94
[2017-10-31 00:01] VITALS: BP 146/70; PULSE 82; RESP 18; TEMP 97.5; O2SAT 99
[2017-10-31] MEDS: hydrOXYzine HCL 25 MG TAB PO SCH ×2 (01:06→08:47)
[2017-10-31] MEDS: ACETAMINOPHEN/HYDROcodone 325 MG/10 MG TAB PO PRN ×3 (01:06→08:29)
[2017-10-31] MEDS: SODIUM CHLOR 0.9% 1000 ML INJ 1,000 ML IV SCH (03:00)
[2017-10-31 04:00] VITALS: BP 148/81; PULSE 87; RESP 18; TEMP 98; O2SAT 93
[2017-10-31] MEDS: RESP: ALBUTEROL 2.5 MG/IPRATROPIUM 0.5 MG NEB (PRN) NEB (04:20)
[2017-10-31 04:21] VITALS: O2SAT 98
--- NOTE | 2017-10-31 07:05 | PD.ORT.PN ---
Subjective Subjective Remarks POD 3 s/p ORIF right tibial plateau fx doing well. reports pain but resting comfortably Objective Vitals Vital Signs Date Time Temp Pulse Resp B/P (MAP) Pulse Ox O2 Delivery O2 Flow Rate FiO2 10/31/17 04:21 98 Nasal Cannula 2.00 10/31/17 04:00 98.0 87 18 148/81 (103) 93 10/31/17 00:01 97.5 82 18 146/70 (95) 99 10/30/17 20:00 99.2 90 18 125/66 (85) 94 10/30/17 17:55 18 10/30/17 16:00 97.9 91 18 122/56 (78) 97 10/30/17 14:18 96 Nasal Cannula 2.00 10/30/17 13:00 98.1 95 18 144/65 (91) 96 10/30/17 09:45 Nasal Cannula 2.00 10/30/17 08:00 98.3 94 18 134/63 (86) 96 I/O 10/30/17 10/30/17 10/30/17 10/31/17 10/31/17 10/31/17 07:00 15:00 23:00 07:00 15:00 23:00 Intake Total 630 ml 50 ml 960 ml 600 ml Balance 630 ml 50 ml 960 ml 600 ml Intake Oral 480 ml 960 ml 600 ml IV Total 150 ml 50 ml # Voids 3 3 5 # Bowel Movements 0 Result Diagram: 10/29/17 0455 10/29/17 0455 Objective Remarks RLE: dressings clean and dry. intact. NVI. +CKS Assessment & Plan Assessment and Plan 1) right Tibial plateau fx s/p ORIF - POD 3 -NWB -CKS at all times except for PT -PROM 0-90deg -no quad sets or leg lifts -DC planning -plan for DC home today when stable -ortho clear for DC -will follow up in 2 weeks at home in [place], [place] -DVT prophylaxis Viral Fonseca/First Kd CASTELLON Oct 31, 2017 07:05
[2017-10-31 08:00] VITALS: BP 126/65; PULSE 80; RESP 19; TEMP 98; O2SAT 98
[2017-10-31] MEDS: DOCUSATE SODIUM 50 MG/SENNA 8.6 MG TAB PO SCH (08:29)
[2017-10-31] MEDS: CHOLECALCIFEROL (VIT D3) 1000 UNIT TAB PO SCH (08:29)
[2017-10-31] MEDS: FOLIC ACID 1 MG TAB PO SCH (08:29)
[2017-10-31] MEDS: SODIUM CHLORIDE 0.9% FLUSH 10 ML FLUSH IV FLUSH SCH (08:29)
[2017-10-31] MEDS: CALCIUM/VITAMIN D 250 MG/125 U TAB PO SCH (08:29)
[2017-10-31] MEDS: ESCITALOPRAM OXALATE 20 MG TAB PO SCH (08:29)
[2017-10-31] MEDS: ENOXAPARIN SODIUM 40 MG/0.4 ML SYRINGE SQ SCH (08:47)
[2017-10-31] MEDS: MULTIVITAMINS/MINERALS THERAPEUTIC TAB PO SCH (08:47)
[2017-10-31] MEDS: PRIMIDONE 50 MG TAB PO SCH (08:47)
[2017-10-31] MEDS: THIAMINE HCL 100 MG TAB PO SCH (08:47)
[2017-10-31 09:36] VITALS: O2SAT 98
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
--- NOTE | 2017-10-31 10:05 | HHI.PR ---
Subjective Remarks The pt was resting comfortably in bed. She said that she was passing gas. She had pain in the right leg. No other acute complaints. Discussed with nursing and family at the bedside. Objective Vitals Vital Signs Date Time Temp Pulse Resp B/P (MAP) Pulse Ox O2 Delivery O2 Flow Rate FiO2 10/31/17 09:36 98 Nasal Cannula 2.00 10/31/17 08:30 Room Air 10/31/17 08:00 98.0 80 19 126/65 (85) 98 10/31/17 04:21 98 Nasal Cannula 2.00 10/31/17 04:00 98.0 87 18 148/81 (103) 93 10/31/17 00:01 97.5 82 18 146/70 (95) 99 10/30/17 20:00 99.2 90 18 125/66 (85) 94 10/30/17 20:00 Nasal Cannula 2.00 10/30/17 17:55 18 10/30/17 16:00 97.9 91 18 122/56 (78) 97 10/30/17 14:18 96 Nasal Cannula 2.00 10/30/17 13:00 98.1 95 18 144/65 (91) 96 I/O 10/30/17 10/30/17 10/30/17 10/31/17 10/31/17 10/31/17 07:00 15:00 23:00 07:00 15:00 23:00 Intake Total 630 ml 50 ml 960 ml 600 ml 120 ml Balance 630 ml 50 ml 960 ml 600 ml 120 ml Intake Oral 480 ml 960 ml 600 ml 120 ml IV Total 150 ml 50 ml # Voids 3 3 5 # Bowel Movements 0 Result Diagram: 10/29/17 0455 10/29/17 0455 Imaging Last Impressions Chest X-Ray 10/28/17 0248 Signed Impressions: CONCLUSION: No acute intrathoracic disease. Pelvis X-Ray 10/28/17 020 Signed Impressions: CONCLUSION: No acute fracture or joint dislocation. Femur X-Ray 10/28/17201 Signed Impressions: CONCLUSION: 1. No acute fracture of the femur. 2. There is a fracture involving the lateral tibial plateau. Lower Extremity CT 10/28/17 0000 Signed Impressions: CONCLUSION: 1. Intra-articular comminuted depressed fracture involving the lateral tibial plateau. 2. Joint effusion. Knee X-Ray 10/28/17 0000 Signed Impressions: CONCLUSION: Orthopedic hardware with good alignment. Objective Remarks GENERAL: This is a well-nourished, well-developed patient. SKIN: No rashes, ecchymoses or lesions. Cool and dry. HEAD: Atraumatic. Normocephalic. No temporal or scalp tenderness. EYES: Pupils equal round and reactive. Extraocular motions intact. No scleral icterus. No injection or drainage. ENT: Nose without bleeding, purulent drainage or septal hematoma. Throat without erythema, tonsillar hypertrophy or exudate. Uvula midline. Airway patent. NECK: Trachea midline. No JVD or lymphadenopathy. Supple, nontender, no meningeal signs. CARDIOVASCULAR: Regular rate and rhythm. Grade 1 systolic murmur best appreciated at the left lower sternal border. RESPIRATORY: Clear to auscultation. Breath sounds equal bilaterally. No wheezes , rales, or rhonchi. GASTROINTESTINAL: Abdomen soft, non-tender, nondistended. No hepato-splenomegaly , or palpable masses. No guarding. + BS. MUSCULOSKELETAL: RLE with tenderness and limited ROM. NEUROLOGICAL: Awake and alert. Cranial nerves II through XII intact. Motor and sensory grossly within normal limits. Five out of 5 muscle strength in all muscle groups. Normal speech. PSYCH: Calm. Procedures Right tibial plateau fracture repair A/P Problem List: (1) Right medial tibial plateau fracture ICD Code: S82.131A - Displaced fracture of medial condyle of right tibia, initial encounter for closed fracture Status: Acute (2) Tibial plateau fracture, right ICD Code: S82.141A - Displaced bicondylar fracture of right tibia, initial encounter for closed fracture Assessment and Plan Right tibial plateau fracture Sustained from a slip and fall. Status post orthopedic repair on 10/28/2017. - Wound care, weightbearing and anticoagulation per orthopedic surgery. - Incentive spirometry. - Physical therapy. - Pain control with a bowel regimen. - discussed with IAN Zamora to for patient to travel by plane 10/31/17 as long as she received her Lovenox shot today and will start her Xarelto as prescribed tomorrow. Depression The patient recently lost her son and her brother. Psychiatry consult appreciated. - continue medication regimen. - outpt follow-up. Alcohol abuse The patient drinks over a bottle of wine daily. Does not appear to be withdrawing. - Cessation instruction. - CIWA protocol. Nicotine abuse The patient smokes about a pack a day. - Cessation instruction. - nicotine patch if needed. HCV The pt says she was treated in the past. LFTs not elevated. - outpt follow-up. PPx: Per surgery Discharge Planning D/c home Problem Qualifiers (1) Right medial tibial plateau fracture: Qualified Codes: S82.131A - Displaced fracture of medial condyle of right tibia , initial encounter for closed fracture (2) Tibial plateau fracture, right: Qualified Codes: S82.141A - Displaced bicondylar fracture of right tibia, initial encounter for closed fracture Ashwin Guevara DO Oct 31, 2017 10:05
== END 2017-10-31 10:26 | disposition home or self-care (01) | DRG 489 ==
LOC: NEPE 01:49 → NEDA 04:50 → N06B 12:27
PROVIDERS: ADMIT Hospitalist; ATTEND Hospitalist
PROC: 0SQC0ZZ Repair Right Knee Joint, Open Approach (ICD-10-PCS; 2017-10-28)
PROC: 0QSG04Z Reposition Right Tibia with Internal Fixation Device, Open Approach (ICD-10-PCS; principal; 2017-10-28 08:50)
DX: S82.121A Displaced fracture of lateral condyle of right tibia, initial encounter for closed fracture (principal); B19.20 Unspecified viral hepatitis C without hepatic coma; M19.90 Unspecified osteoarthritis, unspecified site; M25.461 Effusion, right knee; W01.0XXA Fall on same level from slipping, tripping and stumbling without subsequent striking against object, initial encounter; Y93.01 Activity, walking, marching and hiking; Y92.000 Kitchen of unspecified non-institutional (private) residence as the place of occurrence of the external cause; F17.210 Nicotine dependence, cigarettes, uncomplicated; G25.0 Essential tremor; J45.909 Unspecified asthma, uncomplicated; S83.281A Other tear of lateral meniscus, current injury, right knee, initial encounter; Z80.52 Family history of malignant neoplasm of bladder; F43.23 Adjustment disorder with mixed anxiety and depressed mood; F10.10 Alcohol abuse, uncomplicated
CPT/HCPCS: 71045; 72170; 73552; 73560; 73700; 76000; 80048; 80053; 82652; 85025; 85610; 85730; 86850; 86900; 86901; 93005; 94150; 94640; 94664; 96374; 96375; C1713; J0131; J0690; J1580; J1650; J2175; J2270; J3010; J3370; J7030; J7050; J7120; J7613; L1830